=== PATIENT | female | born 1990 | race Caucasian/White ===

== ENCOUNTER 2016-06-21 | Emergency (ER) | payer OTHER ==
--- NOTE | 2016-06-21 14:48 | ED ---
General Adult HPI - General Chief complaint: Dental/Oral Stated complaint: dental pain Time Seen by Provider: 06/21/16 14:40 Source: patient, RN notes reviewed Mode of arrival: ambulatory Limitations: no limitations - History of Present Illness Initial comments: Is a 25-year-old female presents with dental pain to the upper gumline. Patient states it's been hurting her for 2 straight days. Patient has been taking Tylenol and her motion without pain relief. Patient states she is currently looking for a dentist. Patient denies any foul odor, purulent drainage or swelling. Patient denies any fever/chills, nausea/vomiting or diarrhea. Patient denies any recent shortness breath, chest pain, abdominal pain , back pain, numbness, tingling, hematuria, headache, or visual changes, or any other complaints. Patient denies any chance of being as she has had a tubal ligation. - Related Data Previous Rx's Medication Instructions Recorded Acetaminophen-Codeine 300-30mg 1 tab PO Q6H #7 tablet 06/21/16 [Tylenol #3] Clindamycin [Cleocin] 150 mg PO Q6H 7 Days 06/21/16 Allergies Allergy/AdvReac Type Severity Reaction Status Date / Time amoxicillin [Amoxicillin] Allergy Anaphylaxis Verified 06/21/16 14:43 Review of Systems ROS Statement: Those systems with pertinent positive or pertinent negative responses have been documented in the HPI. ROS Other: All systems not noted in ROS Statement are negative. Past Medical History Past Medical History: Asthma, Pneumonia Additional Past Medical History / Comment(s): scoliosis, borderline personality disorder, vertigo History of Any Multi-Drug Resistant Organisms: None Reported Past Surgical History: Tubal Ligation Additional Past Surgical History / Comment(s): D&C Past Anesthesia/Blood Transfusion Reactions: No Reported Reaction Past Psychological History: Anxiety, Bipolar Smoking Status: Current every day smoker Past Alcohol Use History: None Reported Past Drug Use History: None Reported - Past Family History Mother Family Medical History: Musculoskeletal Disorder General Exam - General Exam Comments Initial Comments: General: The patient is awake and alert, in no distress, and does not appear acutely ill. Eye: Pupils are equal, round and reactive to light, extra-ocular movements are intact. No nystagmus. There is normal conjunctiva bilaterally. No signs of icterus. Ears: TMs pink and pearly with intact light bilaterally. Normal external ear canals Nose: Nasal turbinates pink and moist. Mouth and throat: There are multiple areas of tooth decay. There is tenderness to palpation with a tongue blade of tooth #9. Multiple cavities present. No erythema, purulent drainage or swelling. There are moist mucous membranes and no oral lesions. Neck: The neck is supple, there is no tenderness or JVD. Cardiovascular: There is a regular rate and rhythm. No murmur, rub or gallop is appreciated. Respiratory: Lungs are clear to auscultation, respirations are non-labored, breath sounds are equal. No wheezes, stridor, rales, or rhonchi. Musculoskeletal: Normal ROM, no tenderness. Strength 5/5. Sensation intact. Radial Pulses equal bilaterally 2+. Neurological: A&O x 3. CN II-XII intact, There are no obvious motor or sensory deficits. Coordination appears grossly intact. Speech is normal. Skin: Skin is warm and dry and no rashes or lesions are noted. Psychiatric: Cooperative, appropriate mood & affect, normal judgment. Limitations: no limitations Course Vital Signs 06/21/16 14:41 Temperature 98.1 F Pulse Rate 97 Respiratory 18 Rate Blood Pressure 146/78 O2 Sat by Pulse 98 Oximetry Medical Decision Making - Medical Decision Making This is a 25-year-old female presents with dental pain. On physical exam there are multiple areas of tooth decay. There is tenderness to palpation with a tongue blade of tooth #9. Multiple cavities present. No erythema, purulent drainage or swelling. There are moist mucous membranes and no oral lesions. Patient is afebrile in the EC today. Discussed with patient that she'll be put on a course of antibiotics. Discussed a short course of Tylenol No. 3 until she can follow up with her dentist. Tylenol 3 may make you drowsy please avoid driving or drinking alcohol or using this medication. Discussed return parameters. Discussed that patient should follow up with PCP in one to 2 days or return to the EC for any worsening symptoms or for any further concerns. Patient was receptive to this plan and patient will be discharged home. Disposition Clinical Impression: Pain, dental Disposition: HOME SELF-CARE Condition: Good Instructions: Toothache (ED) Additional Instructions: Please use antibiotics as prescribed. Please use pain medication as prescribed. Tylenol 3 may make you drowsy please avoid driving or drinking alcohol or using this medication. Use warm compresses to the area for pain. Please follow-up with dentist as soon as possible. Please follow up with PCP tomorrow or return to the EC for any worsening symptoms or for any further concerns. [facility] dental plan: [id number] [place] [address], . [employer]: Have to pay $50 for x-rays and the rest is covered. [phone]. Prescriptions: Acetaminophen-Codeine 300-30mg [Tylenol #3] 1 tab PO Q6H #7 tablet Clindamycin [Cleocin] 150 mg PO Q6H 7 Days Referrals: Paul Vick MD [REFERRING] - 1-2 days Time of Disposition: 14:52
== END 2016-06-21 14:57 | disposition home or self-care (01) ==
CPT/HCPCS: 99282

== ENCOUNTER 2017-01-17 16:43 | Emergency (ER) | payer OTHER ==
[2017-01-17 16:53] VITALS: BP 131/79; PULSE 83; RESP 17; TEMP 98
--- NOTE | 2017-01-17 17:19 | ED ---
ENT HPI - General Chief complaint: Dental/Oral Stated complaint: Oral Pain Time Seen by Provider: 01/17/17 16:56 Source: patient Mode of arrival: ambulatory Limitations: no limitations - History of Present Illness Initial comments: 26-year-old female patient presents to emergency department today for evaluation of right lower dental pain. Patient states that she has had this pain for the last week. Patient states that she has broken teeth, all to pull cavities, and is supposed to have them all pulled. Today she is unable to due to secretions have a ride to and from the appointment. Patient states that she had abscess to the same location at the beginning of this year. Patient states that she has felt feverish, but has not checked her temperature. Denies any difficulty opening her mouth. She denies any headache, neck pain, back pain, chest pain, shortness of breath, abdominal pain, nausea, vomiting, or any other physical symptoms. - Related Data Previous Rx's Medication Instructions Recorded Acetaminophen-Codeine 300-30mg 1 tab PO Q6H #7 tablet 06/21/16 [Tylenol #3] Clindamycin [Cleocin] 150 mg PO Q6H 7 Days 06/21/16 Acetaminophen-Codeine 300-30mg 1 tab PO Q6H PRN #15 tablet 01/17/17 [Tylenol #3] Clindamycin HCl 300 mg PO Q8H #30 cap 01/17/17 Allergies Allergy/AdvReac Type Severity Reaction Status Date / Time amoxicillin [Amoxicillin] Allergy Anaphylaxis Verified 01/17/17 16:51 Review of Systems ROS Statement: Those systems with pertinent positive or pertinent negative responses have been documented in the HPI. ROS Other: All systems not noted in ROS Statement are negative. Past Medical History Past Medical History: Asthma, Pneumonia Additional Past Medical History / Comment(s): scoliosis, borderline personality disorder, vertigo History of Any Multi-Drug Resistant Organisms: None Reported Past Surgical History: Tubal Ligation Additional Past Surgical History / Comment(s): D&C Past Anesthesia/Blood Transfusion Reactions: No Reported Reaction Past Psychological History: Anxiety, Bipolar Smoking Status: Current every day smoker Past Alcohol Use History: None Reported Past Drug Use History: None Reported - Past Family History Mother Family Medical History: Musculoskeletal Disorder General Exam Limitations: no limitations General appearance: alert, in no apparent distress Head exam: Present: atraumatic, normocephalic, normal inspection Eye exam: Present: normal appearance, PERRL, EOMI. Absent: scleral icterus, conjunctival injection, periorbital swelling ENT exam: Present: normal exam ( Tooth #31 is completely broken, remaining to this level with the gum. No evidence of abscess to the gumline. There is some mild swelling noted to the right cheek.), normal oropharynx, mucous membranes moist, TM's normal bilaterally, other Neck exam: Present: normal inspection, lymphadenopathy (Palpable anterior cervical lymph node on the right side.). Absent: tenderness, meningismus Respiratory exam: Present: normal lung sounds bilaterally. Absent: respiratory distress, wheezes, rales, rhonchi, stridor Cardiovascular Exam: Present: regular rate, normal rhythm, normal heart sounds. Absent: systolic murmur, diastolic murmur, rubs, gallop, clicks Extremities exam: Present: normal inspection, full ROM, normal capillary refill. Absent: tenderness, pedal edema, joint swelling, calf tenderness Back exam: Present: normal inspection Neurological exam: Present: alert, oriented X3, CN II-XII intact Psychiatric exam: Present: normal affect, normal mood Skin exam: Present: warm, dry, intact, normal color. Absent: rash Course Vital Signs 01/17/17 16:51 Temperature 98.0 F Pulse Rate 83 Respiratory 17 Rate Blood Pressure 131/79 O2 Sat by Pulse 98 Oximetry Medical Decision Making - Medical Decision Making -year-old female patient presented to emergency department today for evaluation of right-sided dental pain. Physical exam did show a fractured tooth and some mild soft tissue swelling to the outside of the face. Patient will be placed on clindamycin as well as given Tylenol 3 with codeine for pain control. Patient instructed to follow up with a dentist as soon as possible. Patient also instructed to follow-up with her primary care physician if she can't get in to see her dentist. Instructed to return here for any new, worsening, or concerning symptoms. Patient verbalizes understanding and agrees with this plan. Disposition Clinical Impression: Pain, dental, Fractured tooth Disposition: HOME SELF-CARE Condition: Good Instructions: Dental Caries (ED), Toothache (ED) Additional Instructions: Complete antibiotic prescription in full. Follow up with dentist as soon as possible. Return for any new, worsening, or concerning symptoms. Prescriptions: Acetaminophen-Codeine 300-30mg [Tylenol #3] 1 tab PO Q6H PRN #15 tablet PRN Reason: Pain Clindamycin HCl 300 mg PO Q8H #30 cap Referrals: None,Stated [Primary Care Provider] - 1-2 days Time of Disposition: 17:19
== END 2017-01-17 17:27 | disposition home or self-care (01) ==
LOC: EC 16:43
DX: S02.5XXA Fracture of tooth (traumatic), initial encounter for closed fracture (principal); F17.200 Nicotine dependence, unspecified, uncomplicated; Z88.0 Allergy status to penicillin; X58.XXXA Exposure to other specified factors, initial encounter
CPT/HCPCS: 99282

== ENCOUNTER 2017-04-26 16:52 | Emergency (ER) | payer OTHER ==
--- NOTE | 2017-04-26 17:53 | ED ---
General Adult HPI - General Chief complaint: ENT Stated complaint: Sore Throat/Cough Time Seen by Provider: 04/26/17 17:11 Source: patient, RN notes reviewed Mode of arrival: ambulatory Limitations: no limitations - History of Present Illness Initial comments: This is a 26-year-old female who presents to the emergency department with chief complaint of cough. Patient states for the last week she has been feeling generally unwell. She reports that she has had a cough and intermittent fevers. Patient states that this morning she woke up and her cough was worse. She states that this morning she also began to have left- sided jaw pain. She states she is unable to tell if she has an ear infection that is causing her to have the mouth pain or if she has an infected tooth. She states that she has many dental problems and has had abscesses in the past. Patient reports that she's also had myalgias, sore throat and one episode of vomiting and diarrhea this morning after she ate breakfast. Denies chest pain, shortness of breath, abdominal pain, numbness or tingling, headache or vision changes. - Related Data Home Medications Medication Instructions Recorded Confirmed Phenylephrine/Dm/Acetaminop/GG 30 ml PO Q4H PRN 04/26/17 04/26/17 [Vicks Dayquil Severe Cold-Flu] Previous Rx's Medication Instructions Recorded Clindamycin [Cleocin] 450 mg PO TID #90 cap 04/26/17 Ibuprofen 600 mg PO Q6HR #30 tablet 04/26/17 Allergies Allergy/AdvReac Type Severity Reaction Status Date / Time amoxicillin [Amoxicillin] Allergy Anaphylaxis Verified 04/26/17 17:11 Review of Systems ROS Statement: Those systems with pertinent positive or pertinent negative responses have been documented in the HPI. ROS Other: All systems not noted in ROS Statement are negative. Past Medical History Past Medical History: Asthma, Pneumonia Additional Past Medical History / Comment(s): scoliosis, borderline personality disorder, vertigo History of Any Multi-Drug Resistant Organisms: None Reported Past Surgical History: Tubal Ligation Additional Past Surgical History / Comment(s): D&C Past Anesthesia/Blood Transfusion Reactions: No Reported Reaction Past Psychological History: Anxiety, Bipolar Smoking Status: Current every day smoker Past Alcohol Use History: None Reported Past Drug Use History: None Reported - Past Family History Mother Family Medical History: Musculoskeletal Disorder General Exam - General Exam Comments Initial Comments: General: Awake and alert, well-developed; in no apparent distress. HEENT: Head atraumatic, normocephalic. Pupils are equal, round and reactive to light. Extraocular movements intact. Oropharynx moist without erythema or exudate. Poor dentition with multiple caries, fractured teeth and missing teeth. There is tenderness on palpation of tooth #17; it is fractured and appears to have a cavity. No masses or areas of fluctuance noted. Bilateral TMs are pearly without effusion. Neck: Supple. Normal ROM. No adenopathy. Cardiovascular: Regular rate and rhythm. No murmurs, rubs or gallops. Chest symmetrical. Respiratory: Lungs clear to auscultation bilaterally. No wheezes, rales or rhonchi. Normal respiratory effort with no use of accessory muscles. Abdomen: Soft, non-tender, non-distended. No rigidity, rebound or guarding. Normal bowel sounds in all 4 quadrants. Musculoskeletal: Normal ROM, no tenderness bilateral upper and lower extremities. Radial pulses are 2+ equal and palpable bilaterally. Skin: [place], warm and dry without rashes or lesions. Neurological: Alert and oriented x3. CN II-XII grossly intact. Speech is fluent and answers are appropriate. No focal neuro deficits. Psychiatric: Normal mood and affect. No overt signs of depression or anxiety noted. Limitations: no limitations Course Vital Signs 04/26/17 17:06 Temperature 99.2 F Pulse Rate 121 H Respiratory 18 Rate Blood Pressure 135/79 O2 Sat by Pulse 99 Oximetry Medical Decision Making - Medical Decision Making This is a 26-year-old female who presents to the emergency department with chief complaint of cough and fever. Chest x-ray was normal. Patient tested negative for influenza A and B. There is tenderness on palpation of tooth #17, which is fractured, and surrounding gumline. Vitals are stable and patient is in no acute distress. She'll be discharged home with a prescription for clindamycin and ibuprofen for tooth pain. Patient is in agreement to the plan and voiced understanding. All questions were answered. - Radiology Data Radiology results: report reviewed Chest x-ray findings: There is no heart failure nor confluent pneumonic infiltrate. There is mild thoracic dextroscoliosis. Heart and mediastinum appear normal. There is no sign of pleural effusion. Impression: No cardiopulmonary disease. Scoliotic deformity noted. No change. Disposition Clinical Impression: Pain, dental, Fracture of tooth, Upper respiratory infection Disposition: HOME SELF-CARE Condition: Good Instructions: Toothache (ED), Upper Respiratory Infection (ED) Additional Instructions: Please take medications as prescribed. Please follow up with primary care provider within 1-2 days. Please follow up with a dentist. Return to emergency department if symptoms should worsen or any concerns arise. Prescriptions: Clindamycin [Cleocin] 450 mg PO TID #90 cap Ibuprofen 600 mg PO Q6HR #30 tablet Referrals: None,Stated [Primary Care Provider] - 1-2 days Time of Disposition: 18:16
--- NOTE | 2017-04-26 17:59 | XR ---
EXAMINATION TYPE: XR chest 2V DATE OF EXAM: 04/26/2017 COMPARISON: 05/03/2010 HISTORY: Cough and fever TECHNIQUE: Frontal and lateral views of the chest are obtained. FINDINGS: There is no heart failure nor confluent pneumonic infiltrate. There is mild thoracic dextr oscoliosis. Heart and mediastinum appear normal. There is no sign of pleural effusion. IMPRESSION: No cardiopulmonary disease. Scoliotic deformity noted. No change.
[2017-04-26 18:10] VITALS: BP 121/89; PULSE 82; RESP 16; TEMP 97.5
== END 2017-04-26 18:21 | disposition home or self-care (01) ==
LOC: EC 16:52
DX: S02.5XXA Fracture of tooth (traumatic), initial encounter for closed fracture (principal); J06.9 Acute upper respiratory infection, unspecified; M41.84 Other forms of scoliosis, thoracic region; K02.9 Dental caries, unspecified; K08.409 Partial loss of teeth, unspecified cause, unspecified class; R11.10 Vomiting, unspecified; R19.7 Diarrhea, unspecified; F17.200 Nicotine dependence, unspecified, uncomplicated; Z88.0 Allergy status to penicillin; X58.XXXA Exposure to other specified factors, initial encounter
CPT/HCPCS: 71020; 87502; 99284

== ENCOUNTER 2017-06-12 17:29 | Emergency (ER) | payer OTHER ==
[2017-06-12] MEDS ORDERED: ACETAMINOPHEN TAB 325 MG TAB PO STA (18:13)
[2017-06-12] MEDS ORDERED: IBUPROFEN 600 MG TAB PO STA (18:13)
[2017-06-12] MEDS ORDERED: ONDANSETRON ODT 4 MG TAB PO STA (18:13)
--- NOTE | 2017-06-12 18:18 | ED ---
Fever HPI - General Chief Complaint: Fever Stated Complaint: Fever/Cough Time Seen by Provider: 06/12/17 18:00 Source: patient Mode of arrival: ambulatory Limitations: no limitations - History of Present Illness Initial Comments: 26-year-old female patient presented to the emergency department today for evaluation of fever, cough, and vomiting. Patient states that she has been sick for the last 3-4 days with upper respiratory symptoms. Patient states that today her cough is worse and it is causing her to vomit. She states she has vomited 4 times. She states that she feels feverish and chilled. She states she did take DayQuil earlier today however doesn't feel like it is helping her symptoms. She states that both of her children have similar symptoms. She denies any shortness of breath. Denies any sputum production. Denies any hemoptysis or hematemesis. Denies any constipation or diarrhea. Denies any chance of . Patient denies any recent rash, chest pain, abdominal pain, back pain, numbness, tingling, dizziness, weakness, hematuria, dysuria, urinary urgency, urinary frequency, headache, visual changes, or any other complaints. Patient does admit to smoking cigarettes. - Related Data Home Medications Medication Instructions Recorded Confirmed Phenylephrine/Dm/Acetaminop/GG 30 ml PO Q4H PRN 04/26/17 06/12/17 [Vicks Dayquil Severe Cold-Flu] Allergies Allergy/AdvReac Type Severity Reaction Status Date / Time amoxicillin [Amoxicillin] Allergy Anaphylaxis Verified 06/12/17 18:22 Review of Systems ROS Statement: Those systems with pertinent positive or pertinent negative responses have been documented in the HPI. ROS Other: All systems not noted in ROS Statement are negative. Past Medical History Past Medical History: Asthma, Pneumonia Additional Past Medical History / Comment(s): scoliosis, borderline personality disorder, vertigo History of Any Multi-Drug Resistant Organisms: None Reported Past Surgical History: Tubal Ligation Additional Past Surgical History / Comment(s): D&C Past Anesthesia/Blood Transfusion Reactions: No Reported Reaction Past Psychological History: Anxiety, Bipolar Smoking Status: Current every day smoker Past Alcohol Use History: None Reported Past Drug Use History: None Reported - Past Family History Mother Family Medical History: Musculoskeletal Disorder General Exam Limitations: no limitations General appearance: alert, in no apparent distress, other (This is a well- developed, well-nourished adult female patient in no acute distress. Vital signs upon presentation are temperature 101.9F, pulse 98, respirations 18, blood pressure 159/81, pulse ox 97% on room air.) Eye exam: Present: normal appearance, PERRL, EOMI. Absent: scleral icterus, conjunctival injection, periorbital swelling ENT exam: Present: normal exam, mucous membranes moist, TM's normal bilaterally. Absent: normal oropharynx (Oropharyngeal erythema) Neck exam: Present: normal inspection. Absent: tenderness, meningismus, lymphadenopathy Respiratory exam: Present: normal lung sounds bilaterally, other (Dry cough noted throughout exam, respirations even and unlabored). Absent: respiratory distress, wheezes, rales, rhonchi, stridor, accessory muscle use Cardiovascular Exam: Present: normal rhythm, tachycardia, normal heart sounds. Absent: systolic murmur, diastolic murmur, rubs, gallop, clicks GI/Abdominal exam: Present: soft, normal bowel sounds. Absent: distended, tenderness, guarding, rebound, rigid Neurological exam: Present: alert, oriented X3, CN II-XII intact Psychiatric exam: Present: normal affect, normal mood Skin exam: Present: warm, dry, intact, normal color. Absent: rash Course Vital Signs 06/12/17 06/12/17 17:46 19:13 Temperature 101.9 F H 99.5 F Pulse Rate 98 57 L Respiratory 18 18 Rate Blood Pressure 159/81 131/83 O2 Sat by Pulse 97 97 Oximetry Medical Decision Making - Medical Decision Making 26-year-old female patient presents to the emergency department today for evaluation of fever, cough, congestion, and vomiting. Patient reported that her vomiting was mostly posttussive and containing sputum. Physical examination is unremarkable. Lungs are clear to auscultation. She did have some mild oropharyngeal erythema. Chest x-ray was obtained and showed no acute cardiopulmonary process. Influenza testing was negative. I did discuss results with the patient. I informed her that her symptoms are most likely related to viral upper respiratory infection. She does have albuterol breathing treatments at home I did encourage her to use these for symptom relief. She is instructed to take [id number] nasal decongestants and cough medications for relief. She is instructed to alternate ibuprofen and Tylenol for fever control. She is instructed to increase fluids. She is instructed to return here immediately for any new, worsening, or concerning symptoms. She verbalizes understanding and agrees with this plan. - Lab Data Lab Results 06/12/17 Range/Units 18:25 Influenza Type A RNA Not Detected (Not Detectd) Influenza Type B (PCR) Not Detected (Not Detectd) - Radiology Data Radiology results: report reviewed, image reviewed Two-view x-ray of the chest shows a heart and mediastinum are normal. Lungs are clear. Diaphragm is normal. There is thoracic scoliotic deformity. Impression by Dr. Kelley shows no cardiopulmonary disease. No change. Disposition Clinical Impression: Viral upper respiratory illness Disposition: HOME SELF-CARE Condition: Good Instructions: Fever in Adults (ED), Upper Respiratory Infection (ED) Additional Instructions: Take [id number] nasal decongestants and cough medications for symptom relief. Increase fluids. Alternate ibuprofen and Tylenol for fever control. Follow-up with your primary care physician for recheck in 1-2 days. Return here immediately for any new, worsening, or concerning symptoms. Referrals: None,Stated [Primary Care Provider] - 1-2 days Time of Disposition: 19:45
--- NOTE | 2017-06-12 19:34 | XR ---
EXAMINATION TYPE: XR chest 2V DATE OF EXAM: 06/12/2017 COMPARISON: 04/26/2017 HISTORY: Pain TECHNIQUE: Frontal and lateral views of the chest are obtained. FINDINGS: Heart and mediastinum are normal. Lungs are clear. Diaphragm is normal. There is thoracic scoliotic deformity. IMPRESSION: No cardiopulmonary disease. No change.
[2017-06-12 23:35] VITALS: BP 131/83; PULSE 57; RESP 18; TEMP 99.5
== END 2017-06-12 19:59 | disposition home or self-care (01) ==
LOC: EC 17:29
DX: J06.9 Acute upper respiratory infection, unspecified (principal); R11.10 Vomiting, unspecified; Z87.01 Personal history of pneumonia (recurrent); Z88.0 Allergy status to penicillin
CPT/HCPCS: 71046; 87502; 99284

== ENCOUNTER → 2018-04-16 | Outpatient (CLI) | payer OTHER ==
--- NOTE | 2018-04-16 14:56 | USB ---
Reason for exam: clinical finding. History: Family history of breast cancer in grandmother. Took hormonal contraceptives beginning at age 12. Physical Findings: Nurse Summary: 0.75cm nodule in the right breast at 12 o'clock (nurse chucky). US Breast RT Right complete breast ultrasound includes all four quadrants, the retroareolar region and axilla. Finding demonstrates a 4 x 4 x 4mm oval, cystic lesion at posterior nipple BB. These results were verbally communicated with the patient and result sheet given to the patient on 04/16/18. ASSESSMENT: Benign, BI-RAD 2 RECOMMENDATION: Routine screening mammogram of both breasts at age 38. Manage patient on a clinical basis.
== END | disposition home or self-care (01) ==
LOC: RADMAMWWP 13:30
PROVIDERS: ATTEND Internal Medicine
DX: N63.10 Unspecified lump in the right breast, unspecified quadrant (principal)

== ENCOUNTER 2018-06-09 11:37 | Emergency (ER) | payer OTHER ==
[2018-06-09 12:31] VITALS: BP 110/74; PULSE 108; RESP 20; TEMP 99.4
--- NOTE | 2018-06-09 13:35 | XR ---
EXAMINATION TYPE: XR chest 2V DATE OF EXAM: 06/09/2018 COMPARISON: 06/12/2017 INDICATION: Pain TECHNIQUE: Frontal and lateral views of the chest are obtained. FINDINGS: The heart size is normal. The pulmonary vasculature is normal. The lungs are clear. Scoliosis is through the thoracic spine. IMPRESSION: 1. No acute pulmonary process.
--- NOTE | 2018-06-09 14:00 | ED ---
URI HPI - General Chief Complaint: Upper Respiratory Infection Stated Complaint: cough, fever, chills Time Seen by Provider: 06/09/18 12:49 Source: patient Mode of arrival: ambulatory Limitations: no limitations - History of Present Illness Initial Comments: 27-year-old female status post past medical history presents today with chief complaint of fever, chills, body aches and cough. Patient states that for the past 2-3 days her her daughter have had fever, chills, bodyaches as well as a mild cough. Patient denies any sputum production. Patient denies any abdominal pain, diarrhea, nausea, vomiting, headache, dizziness, chest pain, shortness of breath or dyspnea on exertion. Mother denies stating is not possible. Remainder of ROS negative. Upon arrival patient's heart rate elevated remainder vital signs the next limits. Patient afebrile well- appearing no signs of acute toxicity. - Related Data Home Medications Medication Instructions Recorded Confirmed Phenylephrine/Dm/Acetaminop/GG 30 ml PO Q4H PRN 04/26/17 06/12/17 [Vicks Dayquil Severe Cold-Flu] Previous Rx's Medication Instructions Recorded Ibuprofen 800 mg PO Q8H PRN 7 Days #21 tablet 06/09/18 Allergies Allergy/AdvReac Type Severity Reaction Status Date / Time amoxicillin [Amoxicillin] Allergy Anaphylaxis Verified 06/09/18 12:31 Review of Systems ROS Statement: Those systems with pertinent positive or pertinent negative responses have been documented in the HPI. ROS Other: All systems not noted in ROS Statement are negative. Past Medical History Past Medical History: Asthma, Pneumonia Additional Past Medical History / Comment(s): scoliosis, borderline personality disorder, vertigo History of Any Multi-Drug Resistant Organisms: None Reported Past Surgical History: Tubal Ligation Additional Past Surgical History / Comment(s): D&C Past Anesthesia/Blood Transfusion Reactions: No Reported Reaction Past Psychological History: Anxiety, Bipolar Smoking Status: Current every day smoker Past Alcohol Use History: None Reported Past Drug Use History: None Reported - Past Family History Mother Family Medical History: Musculoskeletal Disorder General Exam - General Exam Comments Initial Comments: General: The patient is awake and alert, in no distress, and does not appear acutely ill. Eye: +3 mm pupils are equal, round and reactive to light, extra-ocular movements are intact. No nystagmus. There is normal conjunctiva bilaterally. No signs of icterus. Ears, nose, mouth and throat: There are moist mucous membranes and no oral lesions. Oropharynx is mildly erythematous, noted postnasal drip, uvula midline. No tonsillar enlargement or exudates or lesions. Tympanic membranes within normal limits bilaterally no erythema, retractions bulging or effusion. Cone of light and malleus present. Membranes pearly. External auditory canals within normal limits bilaterally. No noted anterior cervical adenopathy. Neck: The neck is supple, there is no tenderness or JVD. Cardiovascular: There is a regular rate and rhythm. No murmur, rub or gallop is appreciated. Respiratory: Lungs are clear to auscultation, respirations are non-labored, breath sounds are equal. No wheezes, stridor, rales, or rhonchi. No findings on lung examination concerning for focal consolidations. No signs of respiratory distress. Gastrointestinal: Soft, non-distended, non-tender abdomen without masses or organomegaly noted. There is no rebound or guarding present. No CVA tenderness. Bowel sounds are unremarkable. Musculoskeletal: Normal ROM, no tenderness. Strength 5/5. Sensation intact. Radial pulses equal bilaterally 2+. Neurological: A&O x 3. CN II-XII intact, There are no obvious motor or sensory deficits. Coordination appears grossly intact. Speech is normal. Skin: Skin is warm and dry and no rashes or lesions are noted. Psychiatric: Cooperative, appropriate mood & affect, normal judgment. Limitations: no limitations Course Vital Signs 06/09/18 06/09/18 12:29 13:00 Temperature 99.4 F Pulse Rate 108 H Respiratory 20 20 Rate Blood Pressure 110/74 O2 Sat by Pulse 97 Oximetry Medical Decision Making - Medical Decision Making Well-appearing 27-year-old female with no sniff Core morbidities presenting today for chief complaint body aches, fever and chill. Patient influenza B- positive. Chest x-ray negative. Remainder of physical exam unremarkable. Patient will be given prescription for ibuprofen 800 for body aches. She appears hydrated, is tolerate by mouth intake. I discussed that the disease is infectious and highly contagious. She verbalizes understanding. Case discussed with Dr. Mercado at this time we do feel patient is stable for discharge with primary care follow-up. Patient verbalized understanding and is agreeable discharge. All return parameters were discussed at length patient who verbalizes understanding. Denied questions at this time.Pt discharged in stable condition well appearing. - Lab Data Lab Results 06/09/18 Range/Units 13:11 Influenza Type A RNA Not Detected (Not Detectd) Influenza Type B (PCR) Detected H (Not Detectd) Disposition Clinical Impression: Influenza B Disposition: HOME SELF-CARE Condition: Good Instructions: Influenza (ED) Additional Instructions: Please use medication as discussed. Please follow-up with family doctor in the next 2 days. Please return to emergency room if the symptoms increase or worsen or for any other concerns. Prescriptions: Ibuprofen 800 mg PO Q8H PRN 7 Days #21 tablet PRN Reason: Pain Is patient prescribed a controlled substance at d/c from ED?: No Referrals: Darrell Pemberton MD [Primary Care Provider] - 1-2 days Time of Disposition: 14:00
== END 2018-06-09 14:12 | disposition home or self-care (01) ==
LOC: EC 11:37
DX: J10.1 Influenza due to other identified influenza virus with other respiratory manifestations (principal); J45.909 Unspecified asthma, uncomplicated; F17.200 Nicotine dependence, unspecified, uncomplicated; Z88.0 Allergy status to penicillin
CPT/HCPCS: 71046; 87502; 99283

== ENCOUNTER → 2018-07-23 | Outpatient (CLI) | payer OTHER ==
--- NOTE | 2018-07-23 13:00 | MR ---
EXAMINATION TYPE: MR brain wo/w con DATE OF EXAM: 07/23/2018 COMPARISON: Prior MR brain 09/27/2014 HISTORY: Headache TECHNIQUE: Multiplanar, multisequence images of the brain and brainstem is performed without and with IV contras t, utilizing 6 mL intravenous Gadavist . FINDINGS: Diffusion weighted images demonstrate no evidence of a recent infarct or other diffusion ab normality. There is no extra-axial fluid collection or significant white matter signal abnormality. The ventricular system and cisternal spaces are normal in size and appearance. The brain volume is age appropriate. Midline structures demonstrate stable morphology, inferior cerebellar tonsillar ectopia is noted as o n prior, 5 to 6 mm suspected on the right which could be confirmed with CT. The craniocervical junct ion appears within normal limits. Post contrast images demonstrate no abnormal enhancement. The dura l venous sinuses appear patent. The visualized sinuses are stable with some mucosal disease present i n the maxillary sinuses and ethmoid air cells, and the globes are intact. IMPRESSION: Mild sinus disease. Stable brain MRI. Right cerebellar tonsil is somewhat more low-lying in the left as described, consider CT.
== END | disposition home or self-care (01) ==
LOC: RADMRIMAIN 11:26
PROVIDERS: ATTEND Psychiatry & Neurology Neurology
DX: R51 Headache (principal)
CPT/HCPCS: 70553; A9585

== ENCOUNTER 2018-09-12 17:12 | Emergency (ER) | payer OTHER ==
[2018-09-12 17:20] VITALS: BP 128/88; PULSE 89; RESP 20; TEMP 98.4
--- NOTE | 2018-09-12 17:52 | ED ---
General Adult HPI - General Chief complaint: Dental/Oral Stated complaint: Tooth Pain Time Seen by Provider: 09/12/18 17:21 Source: patient, RN notes reviewed, old records reviewed Mode of arrival: ambulatory Limitations: no limitations - History of Present Illness Initial comments: 28-year-old female patient past medical history of poor dentition presents to ED approximately 2 weeks of 29th tooth pain. Patient reports that this feels similar to tooth infection she has had in the past. Patient states that she is not . Patient denies any fevers chills, nothing nausea vomiting diarrhea, denies any chest pain, shortness of breath, denies other complaints. Denies any neck pain or nuchal rigidity. Systemic: Pt denies fatigue, myalgia, fever/chills, rash. Pt denies weakness, night sweats, weight loss. Neuro: Pt denies headache, visual disturbances, syncope or pre-syncope. HEENT: Pt denies ocular discharge or irritation, otalgia, rhinorrhea, pharyngitis or notable lymphadenopathy. Cardiopulmonary: Pt denies chest pain, SOB, heart palpitations, dyspnea on exertion. Abdominal/GI: Pt denies abdominal pain, n/v/d. : Pt denies dysuria, burning w/ urination, frequency/urgency. Denies new onset urinary or bowel incontinence. MSK: Pt denies myalgia, loss of strength or function in extremities. Neuro: Pt denies new onset weakness, paresthesias. - Related Data Home Medications Medication Instructions Recorded Confirmed Phenylephrine/Dm/Acetaminop/GG 30 ml PO Q4H PRN 04/26/17 06/12/17 [[place] Dayquil Severe Cold-Flu] Previous Rx's Medication Instructions Recorded Ibuprofen 800 mg PO Q8H PRN 7 Days #21 tablet 06/09/18 Clindamycin [Cleocin] 450 mg PO Q8HR 7 Days capsule 09/12/18 Allergies Allergy/AdvReac Type Severity Reaction Status Date / Time amoxicillin [Amoxicillin] Allergy Anaphylaxis Verified 09/12/18 17:20 Review of Systems ROS Statement: Those systems with pertinent positive or pertinent negative responses have been documented in the HPI. ROS Other: All systems not noted in ROS Statement are negative. Past Medical History Past Medical History: Asthma, Pneumonia Additional Past Medical History / Comment(s): scoliosis, borderline personality disorder, vertigo History of Any Multi-Drug Resistant Organisms: None Reported Past Surgical History: Tubal Ligation Additional Past Surgical History / Comment(s): D&C Past Anesthesia/Blood Transfusion Reactions: No Reported Reaction Past Psychological History: Anxiety, Bipolar Smoking Status: Current every day smoker Past Alcohol Use History: None Reported Past Drug Use History: None Reported - Past Family History Mother Family Medical History: Musculoskeletal Disorder General Exam - General Exam Comments Initial Comments: Constitutional: NAD, AOX3, Pt has pleasant affect. HEENT: NC/AT, trachea midline, neck supple, no lymphadenopathy. Posterior pharynx non erythematous, without exudates. External ears appear normal, without discharge. Mucous membranes moist. Eyes PERRLA, EOM intact. There is no scleral icterus. No pallor noted. Dental exam revealed poor dentition. Localized erythema surrounding the ninth tooth. No abscess. Cardiopulmonary: RRR, no murmurs, rubs or gallops, no JVD noted. Lungs CTAB in anterior and posterior bill. No peripheral edema. Abdominal exam: Abdomen soft and non-distended. Abdomen non-tender to palpation in all 4 quadrants. Bowel sounds active in LLQ. No hepatosplenomegaly. No ecchymosis Neuro: CN II-XII grossly intact. No nuchal rigidity. MSK: No posterior calf tenderness bilaterally, homans sign negative bilaterally. Posterior tibialis and radial pulse +2 bilaterally. Sensation intact in upper and lower extremities. Full active ROM in upper and lower extremities, 5/5 stregnth. Limitations: no limitations Course Vital Signs 09/12/18 17:18 Temperature 98.4 F Pulse Rate 89 Respiratory 20 Rate Blood Pressure 128/88 O2 Sat by Pulse 98 Oximetry Medical Decision Making - Medical Decision Making 28-year-old female patient past medical history of poor dentition presents to ED approximately 2 weeks of 29th tooth pain. Patient reports that this feels similar to tooth infection she has had in the past. Patient states that she is not . Patient denies any fevers chills, nothing nausea vomiting diarrhea, denies any chest pain, shortness of breath, denies other complaints. Denies any neck pain or nuchal rigidity. Patient has signs stable, afebrile. Physical exam displayed: Dental exam revealed poor dentition. Localized erythema surrounding the ninth tooth. No abscess. Patient prescribed clindamycin to 2 ALLERGIES to amoxicillin. Patient to follow up with dentist and primary care provider in 1-2 days. Patient will return to ER if condition worsens in any way. Case discussed with Dr. Ty. Disposition Clinical Impression: Pain, dental, Dental infection Disposition: HOME SELF-CARE Condition: Stable Instructions (If sedation given, give patient instructions): Dental Caries (ED), Toothache (ED) Additional Instructions: Patient to adhere to previously discussed treatment plan and will take medication(s) as directed. Patient to follow up with PCP in 1-2 days. Patient to return to ED if symptoms do not improve. Please take medications as prescribed. Please follow-up with dentist as soon as possible. Prescriptions: Clindamycin [Cleocin] 450 mg PO Q8HR 7 Days capsule Is patient prescribed a controlled substance at d/c from ED?: No Referrals: Darrell Pemberton MD [Primary Care Provider] - 1-2 days
== END 2018-09-12 17:58 | disposition home or self-care (01) ==
LOC: EC 17:12
DX: K04.7 Periapical abscess without sinus (principal); F17.200 Nicotine dependence, unspecified, uncomplicated; Z88.0 Allergy status to penicillin
CPT/HCPCS: 99283

== ENCOUNTER 2018-12-05 17:15 | Emergency (ER) | payer OTHER ==
[2018-12-05 18:48] VITALS: BP 138/73; PULSE 68; RESP 18; TEMP 98.6
[2018-12-05 19:41] LABS: Appearance,Urine Cloudy (Clear); Bilirubin,Urine Negative (Negative); Blood,Urine Negative (Negative); Color,Urine Yellow; Glucose,Urine (UA) Negative (Negative); Ketones,Urine Negative (Negative); Leukocyte Esterase,Urine Trace (Negative); Mucus,Urine Occasional /hpf; Nitrite,Urine Negative (Negative); Protein,Urine Negative (Negative); RBC,Urine 4 /hpf (0-5); Specific Gravity,Urine 1.007 (1.001-1.035); Squamous Epithelial Cell,Urine 53 /hpf (0-4); Urobilinogen,Urine <2.0 mg/dL (<2.0)
[2018-12-05 19:47] LABS: ALT 13 U/L (9-52); AST 15 U/L (14-36); African American GFR (CKD) >90 (>60 ml/min/1.73 sqM); Albumin 4.6 g/dL (3.5-5.0); Alkaline Phosphatase 68 U/L (38-126); Amylase 72 U/L (30-110); Anion Gap 11 mmol/L; Blood Urea Nitrogen 9 mg/dL (7-17); Calcium 9.5 mg/dL (8.4-10.2); Carbon Dioxide 23 mmol/L (22-30); Chloride 105 mmol/L (98-107); Glucose 111 mg/dL (74-99); Lipase 135 U/L (23-300); Sodium 139 mmol/L (137-145); Total Bilirubin 0.9 mg/dL (0.2-1.3); Total Protein 7.5 g/dL (6.3-8.2)
--- NOTE | 2018-12-05 20:05 | XR ---
EXAMINATION TYPE: XR KUB DATE OF EXAM: 12/05/2018 COMPARISON: 03/01/2016 HISTORY: Pain and vomiting for one week TECHNIQUE: 2 upright views FINDINGS: Visualized lung bases and pleural spaces are negative for acute findings. The bowel gas pattern is normal, and there is no pneumatosis or pneumoperitoneum. No definite acute skeletal or soft tissue findings are evident. IMPRESSION: No acute radiographic process.
== END 2018-12-05 20:00 | disposition left against medical advice (07) ==
LOC: EC 17:15
DX: K92.0 Hematemesis (principal); R10.9 Unspecified abdominal pain; Z53.21 Procedure and treatment not carried out due to patient leaving prior to being seen by health care provider
CPT/HCPCS: 36415; 74018; 80053; 81001; 82150; 83690; 99499

== ENCOUNTER 2019-02-01 19:22 | Emergency (ER) | payer OTHER ==
[2019-02-01] MEDS ORDERED: KETOROLAC 30 MG/ML 1 ML VIAL IVP STA (20:01)
[2019-02-01] MEDS ORDERED: SODIUM CHLORIDE 0.9% 1,000 ML IV STA (20:01)
--- NOTE | 2019-02-01 20:16 | ED ---
Abdominal Pain HPI - General Chief Complaint: Abdominal Pain Stated Complaint: Abd pain Time Seen by Provider: 02/01/19 19:42 Source: patient Mode of arrival: ambulatory Limitations: no limitations - History of Present Illness Initial Comments: 28-year-old female patient presents to the emergency department today for evaluation of abdominal bloating and cramping. Patient states she's had bloating for the last week and started having cramping yesterday. Patient states she has pain at a constant 4 out of 10 on the pain scale however it does increase a 7 or 8 occasionally. Patient states it feels like contractions. Patient did have tubal ligation however is concerned one of her clamps may have came loose. She did take a home test which was negative. Patient states her bowel movements have been normal. States she is having some urinary frequency but denies any dysuria or urgency. Denies hematuria. Denies any abnormal vaginal bleeding or discharge. Denies concern for sexually transmitted infections. Denies taking any medications for pain. States she has had tubal ligation and D&C which are her only abdominal myriam geries. Patient denies any recent rash, shortness breath, chest pain, nausea, vomiting, diarrhea, constipation, back pain, numbness, tingling, dizziness, weakness, headache, visual changes, or any other complaints. - Related Data Home Medications Medication Instructions Recorded Confirmed Phenylephrine/Dm/Acetaminop/GG 30 ml PO Q4H PRN 04/26/17 06/12/17 [Vicks Dayquil Severe Cold-Flu] Previous Rx's Medication Instructions Recorded Ibuprofen 800 mg PO Q8H PRN 7 Days #21 tablet 06/09/18 Clindamycin [Cleocin] 450 mg PO Q8HR 7 Days capsule 09/12/18 Allergies Allergy/AdvReac Type Severity Reaction Status Date / Time amoxicillin [Amoxicillin] Allergy Anaphylaxis Verified 02/01/19 19:31 Review of Systems ROS Statement: Those systems with pertinent positive or pertinent negative responses have been documented in the HPI. ROS Other: All systems not noted in ROS Statement are negative. Past Medical History Past Medical History: Asthma, Pneumonia Additional Past Medical History / Comment(s): scoliosis, borderline personality disorder, vertigo History of Any Multi-Drug Resistant Organisms: None Reported Past Surgical History: Tubal Ligation Additional Past Surgical History / Comment(s): D&C Past Anesthesia/Blood Transfusion Reactions: No Reported Reaction Past Psychological History: Anxiety, Bipolar Smoking Status: Current every day smoker Past Alcohol Use History: None Reported Past Drug Use History: None Reported - Past Family History Mother Family Medical History: Musculoskeletal Disorder General Exam Limitations: no limitations General appearance: alert, in no apparent distress, other (This is a well-developed, well-nourished adult female patient in no acute distress. Vital signs upon presentation are temperature 98.2F, pulse 106, respirations 16, blood pressure 129/90, pulse ox 99% on room air.) Eye exam: Present: normal appearance, PERRL, EOMI. Absent: scleral icterus, conjunctival injection, periorbital swelling ENT exam: Present: normal exam, normal oropharynx, mucous membranes moist Respiratory exam: Present: normal lung sounds bilaterally. Absent: respiratory distress, wheezes, rales, rhonchi, stridor Cardiovascular Exam: Present: regular rate, normal rhythm, normal heart sounds. Absent: systolic murmur, diastolic murmur, rubs, gallop, clicks GI/Abdominal exam: Present: soft, tenderness (Suprapubic tenderness), normal bowel sounds. Absent: distended, guarding, rebound, rigid Neurological exam: Present: alert, oriented X3, CN II-XII intact Psychiatric exam: Present: normal affect, normal mood Skin exam: Present: warm, dry, intact, normal color. Absent: rash Course Vital Signs 02/01/19 02/01/19 02/01/19 19:28 21:14 22:04 Temperature 98.2 F 98.6 F 98.4 F Pulse Rate 106 H 83 82 Respiratory 16 18 18 Rate Blood Pressure 129/90 120/85 122/84 O2 Sat by Pulse 99 98 100 Oximetry Medical Decision Making - Medical Decision Making 36-year-old female patient presents to the emergency department today for evaluation of abdominal bloating and cramping. Physical examination did reveal some suprapubic tenderness. Patient is afebrile with normal vital signs. Labs reviewed and are unremarkable. X-ray of the abdomen was obtained and showed no acute abnormalities. Patient was concerned she is , her serum test is negative. She'll be discharged home at this time to follow-up with her primary care physician for recheck in 1-2 days. She is instructed to follow-up with Rhea child if symptoms aren't improved. Return parameters were discus sed in detail. She verbalizes understanding and agrees with this plan. - Lab Data Result diagrams: 02/01/19 20:07 02/01/19 20:07 Lab Results 02/01/19 02/01/19 02/01/19 Range/Units 20:07 20:07 20:07 WBC 6.7 (3.8-10.6) k/uL RBC 4.59 (3.80-5.40) m/uL Hgb 13.8 (11.4-16.0) gm/dL Hct 42.1 (34.0-46.0) % MCV 91.6 (80.0-100.0) fL MCH 30.1 (25.0-35.0) pg MCHC 32.8 (31.0-37.0) g/dL RDW 13.8 (11.5-15.5) % Plt Count 277 (150-450) k/uL Neutrophils % 54 % Lymphocytes % 35 % Monocytes % 6 % Eosinophils % 3 % Basophils % 1 % Neutrophils # 3.6 (1.3-7.7) k/uL Lymphocytes # 2.3 (1.0-4.8) k/uL Monocytes # 0.4 (0-1.0) k/uL Eosinophils # 0.2 (0-0.7) k/uL Basophils # 0.0 (0-0.2) k/uL Sodium 140 (137-145) mmol/L Potassium 4.2 (3.5-5.1) mmol/L Chloride 106 (98-107) mmol/L Carbon Dioxide 24 (22-30) mmol/L Anion Gap 10 mmol/L BUN 12 (7-17) mg/dL Creatinine 0.70 (0.52-1.04) mg/dL Est GFR (CKD-EPI)AfAm >90 (>60 ml/min/1.73 sqM) Est GFR (CKD-EPI)NonAf >90 (>60 ml/min/1.73 sqM) Glucose 85 (74-99) mg/dL Calcium 9.6 (8.4-10.2) mg/dL Total Bilirubin 0.5 (0.2-1.3) mg/dL AST 17 (14-36) U/L ALT 32 (9-52) U/L Alkaline Phosphatase 67 (38-126) U/L Total Protein 7.2 (6.3-8.2) g/dL Albumin 4.3 (3.5-5.0) g/dL Amylase 59 (30-110) U/L Lipase 94 (23-300) U/L HCG, Qual Not Detected Urine Color Yellow Urine Appearance Cloudy H (Clear) Urine pH 5.5 (5.0-8.0) Ur Specific Josephine 1.020 (1.001-1.035) Urine Protein Negative (Negative) Urine Glucose (UA) Negative (Negative) Urine Ketones Negative (Negative) Urine Blood Negative (Negative) Urine Nitrite Negative (Negative) Urine Bilirubin Negative (Negative) Urine Urobilinogen <2.0 (<2.0) mg/dL Ur Leukocyte Esterase Moderate H (Negative) Urine RBC 1 (0-5) /hpf Urine WBC 3 (0-5) /hpf Ur Squamous Epith Cells 22 H (0-4) /hpf Urine Mucus Rare H (None) /hpf - Radiology Data Radiology results: report reviewed, image reviewed KUB x-ray of the abdomen was obtained. Report was reviewed in its entirety. Impression by Dr. Kelley shows nonacute abdomen with no change. Disposition Clinical Impression: Abdominal pain, Bloating Disposition: HOME SELF-CARE Condition: Good Instructions (If sedation given, give patient instructions): Gas and Bloating (ED), Abdominal Pain (ED) Additional Instructions: Eat a bland diet. Increase fluids. Follow-up with your primary care physician for recheck in 1-2 days. Follow-up with gastroenterology as needed. Return to the emergency department immediately for any new, worsening, or concerning symptoms. Is patient prescribed a controlled substance at d/c from ED?: No Referrals: Darrell Pemberton MD [Primary Care Provider] - 1-2 days Rabia Ca MD [STAFF PHYSICIAN] - 1-2 days Time of Disposition: 21:45
[2019-02-01 20:33] LABS: Basophils % (A) 1 %; Eosinophils # (A) 0.2 k/uL (0-0.7); Eosinophils % (A) 3 %; HCT 42.1 % (34.0-46.0); HGB 13.8 gm/dL (11.4-16.0); Lymphocytes # (A) 2.3 k/uL (1.0-4.8); Lymphocytes % (A) 35 %; MCH 30.1 pg (25.0-35.0); MCHC 32.8 g/dL (31.0-37.0); MCV 91.6 fL (80.0-100.0); Monocytes # (A) 0.4 k/uL (0-1.0); Monocytes % (A) 6 %; Neutrophils # (A) 3.6 k/uL (1.3-7.7); Neutrophils % (A) 54 %; Platelet Count 277 k/uL (150-450); RBC 4.59 m/uL (3.80-5.40); RDW 13.8 % (11.5-15.5); WBC 6.7 k/uL (3.8-10.6)
[2019-02-01 20:48] LABS: Appearance,Urine Cloudy (Clear); Bilirubin,Urine Negative (Negative); Blood,Urine Negative (Negative); Color,Urine Yellow; Glucose,Urine (UA) Negative (Negative); HCG,Qualitative Serum Not Detected; Ketones,Urine Negative (Negative); Leukocyte Esterase,Urine Moderate (Negative); Mucus,Urine Rare /hpf; Nitrite,Urine Negative (Negative); PH, Urine 5.5 (5.0-8.0); Protein,Urine Negative (Negative); RBC,Urine 1 /hpf (0-5); Squamous Epithelial Cell,Urine 22 /hpf (0-4); Urobilinogen,Urine <2.0 mg/dL (<2.0); WBC,Urine 3 /hpf (0-5)
[2019-02-01 20:49] LABS: ALT 32 U/L (9-52); AST 17 U/L (14-36); African American GFR (CKD) >90 (>60 ml/min/1.73 sqM); Albumin 4.3 g/dL (3.5-5.0); Alkaline Phosphatase 67 U/L (38-126); Amylase 59 U/L (30-110); Anion Gap 10 mmol/L; Blood Urea Nitrogen 12 mg/dL (7-17); Calcium 9.6 mg/dL (8.4-10.2); Carbon Dioxide 24 mmol/L (22-30); Chloride 106 mmol/L (98-107); Glucose 85 mg/dL (74-99); Potassium 4.2 mmol/L (3.5-5.1); Sodium 140 mmol/L (137-145); Total Bilirubin 0.5 mg/dL (0.2-1.3); Total Protein 7.2 g/dL (6.3-8.2)
--- NOTE | 2019-02-01 21:04 | XR ---
EXAMINATION TYPE: XR KUB DATE OF EXAM: 02/01/2019 COMPARISON: 12/05/2018 HISTORY: Abdominal pain TECHNIQUE: 2 views FINDINGS: 2 upright views were obtained and show no sign of intestinal obstruction or pneumoperitoneu m. Fecal pattern is normal. There is thoracolumbar dextroscoliosis. Lung bases are clear. There are n o pathologic calcifications. There are clips from tubal ligation. There is no evidence of a mass. IMPRESSION: Nonacute abdomen. No change.
[2019-02-01 21:15] VITALS: RESP 18
[2019-02-01 22:06] VITALS: BP 122/84; PULSE 82; TEMP 98.4
== END 2019-02-01 22:05 | disposition home or self-care (01) ==
LOC: EC 19:22
DX: R10.9 Unspecified abdominal pain (principal); R14.0 Abdominal distension (gaseous); Z32.02 Encounter for pregnancy test, result negative; R35.0 Frequency of micturition; F17.200 Nicotine dependence, unspecified, uncomplicated; Z88.0 Allergy status to penicillin; Z98.51 Tubal ligation status
CPT/HCPCS: 36415; 80053; 82150; 83690; 85025; 81001; 84703; 74018; 99284; 96374; 96361; J1885

== ENCOUNTER → 2019-11-24 | Outpatient (CLI) | payer OTHER ==
--- NOTE | 2019-11-25 09:42 | XR ---
Right hip HISTORY: Chronic right hip pain 2 views of the right hip Bone mineralization, joint spaces and alignment are maintained. Fallopian tubal ligation clip is pres ent in the right hemipelvis. No fracture or dislocation. IMPRESSION: Normal right hip. Hip MRI may be of benefit.
== END | disposition home or self-care (01) ==
LOC: RADXRMAIN 15:43
PROVIDERS: ATTEND Internal Medicine
DX: M25.551 Pain in right hip (principal)
CPT/HCPCS: 73502

== ENCOUNTER 2022-04-24 13:40 | Emergency (ER) | payer OTHER ==
[2022-04-24 13:50] VITALS: BP 130/90; PULSE 84; RESP 20; TEMP 98
--- NOTE | 2022-04-24 14:56 | ED ---
ENT HPI - General Chief complaint: Dental/Oral Stated complaint: Dental Issues Time Seen by Provider: 04/24/22 14:37 Source: patient, RN notes reviewed Mode of arrival: ambulatory Limitations: no limitations - History of Present Illness Initial comments: Patient is a 31-year-old male presenting to the emergency room with complaints of pain and swelling to the front upper, with worsening in the left cheek region which began approximately 24 hours ago. She reports an [id number] to help with symptoms but reports that the swelling is wors ening. She has multiple dental caries and needs all of her teeth extracted however she is not currently following with a dentist. She has had recurrent dental infections and has been treated with clindamycin in this past with response though the infections recur due to lack of dental follow-up. She she has pain with chewing but denies any difficulty swallowing. She denies any chest pain, shortness breath, abdominal pain, nausea, vomiting, fevers or chills. She is past medical history significant for asthma borderline personality disorder and vertigo. - Related Data Home Medications Medication Instructions Recorded Confirmed Phenylephrine/Dm/Acetaminop/GG 30 ml PO Q4H PRN 04/26/17 06/12/17 [Vicks Dayquil Severe Cold-Flu] Previous Rx's Medication Instructions Recorded Ibuprofen 800 mg PO Q8H PRN 7 Days #21 tablet 06/09/18 Clindamycin [Cleocin] 450 mg PO Q8HR 7 Days capsule 09/12/18 clindamycin HCL [Cleocin] 300 mg PO Q6HR 10 Days #40 cap 04/24/22 Allergies Allergy/AdvReac Type Severity Reaction Status Date / Time amoxicillin [Amoxicillin] Allergy Anaphylaxis Verified 04/24/22 13:49 Review of Systems ROS Statement: Those systems with pertinent positive or pertinent negative responses have been documented in the HPI. ROS Other: All systems not noted in ROS Statement are negative. Past Medical History Past Medical History: Asthma, Pneumonia Additional Past Medical History / Comment(s): scoliosis, borderline personality disorder, vertigo History of Any Multi-Drug Resistant Organisms: None Reported Past Surgical History: Tubal Ligation Additional Past Surgical History / Comment(s): D&C Past Anesthesia/Blood Transfusion Reactions: No Reported Reaction Past Psychological History: Anxiety, Bipolar Smoking Status: Current every day smoker Past Alcohol Use History: None Reported Past Drug Use History: None Reported - Past Family History Mother Family Medical History: Musculoskeletal Disorder General Exam Limitations: no limitations General appearance: alert, in no apparent distress Head exam: Present: atraumatic, normocephalic, normal inspection Eye exam: Present: normal appearance, PERRL, EOMI. Absent: scleral icterus, conjunctival injection, periorbital swelling Expanded Teeth exam: Present: dental caries (multiple), fractured tooth # (multiple), dental tenderness # (multiple), gingival enlargement (upper front to left posterior) Neck exam: Present: tenderness, full ROM, lymphadenopathy (shotty) Respiratory exam: Absent: respiratory distress, accessory muscle use Cardiovascular Exam: Present: regular rate GI/Abdominal exam: Absent: distended Extremities exam: Absent: pedal edema, joint swelling Back exam: Present: normal inspection Neurological exam: Present: alert, oriented X3, CN II-XII intact Psychiatric exam: Present: normal affect, normal mood Skin exam: Present: other (Gingival erythremia and edema as above). Absent: rash Course Vital Signs 04/24/22 13:48 Temperature 98 F Pulse Rate 84 Respiratory 20 Rate Blood Pressure 130/90 O2 Sat by Pulse 99 Oximetry Medical Decision Making - Medical Decision Making 31-year-old female presenting to the emergency room with pain and swelling to her upper and left side of her come into her cheek region increasing in size and intensity over the last 24 hours. Previous treatment for dental abscess. No overt abscess visualized or palpated for drainage. Responded well to clindamycin in the past. No indication for diagnostic imaging or laboratory studies. Will give clindamycin course of antibiotic therapy again. Encouraged continuation of [id number] ibuprofen for pain and swelling. Will discharge home in stable condition with antibiotic therapy and advise follow-up with primary care provider along with dentist. Case discussed with Dr. Reina. Disposition Clinical Impression: Gingivitis, Abscess, dental Disposition: HOME SELF-CARE Condition: Stable Instructions (If sedation given, give patient instructions): Dental Abscess (ED) Additional Instructions: Please complete course of antibiotic as prescribed. Continue to utilize ibuprofen [id number] as needed for pain and swelling. Please follow-up with your primary care provider and with dentist. Please return to the Emergency Department if symptoms worsen or any other concerns. Prescriptions: clindamycin HCL [Cleocin] 300 mg PO Q6HR 10 Days #40 cap Is patient prescribed a controlled substance at d/c from ED?: No Referrals: None,Stated [Primary Care Provider] - 1-2 days Time of Disposition: 14:58
== END 2022-04-24 15:10 | disposition home or self-care (01) ==
LOC: EC 13:40
DX: K05.10 Chronic gingivitis, plaque induced (principal); K04.7 Periapical abscess without sinus; J45.909 Unspecified asthma, uncomplicated; F41.9 Anxiety disorder, unspecified; F31.9 Bipolar disorder, unspecified; F17.200 Nicotine dependence, unspecified, uncomplicated; Z79.899 Other long term (current) drug therapy; Z88.0 Allergy status to penicillin
CPT/HCPCS: 99282

== ENCOUNTER 2024-08-25 17:17 | Emergency (ER) | payer OTHER ==
--- NOTE | 2024-08-25 17:55 | ED ---
General Adult HPI - General Chief complaint: Chest Pain Stated complaint: chest pain Time Seen by Provider: 08/25/24 17:24 Source: patient Mode of arrival: ambulatory Limitations: no limitations - History of Present Illness Initial comments: Dictation was produced using [employer] dictation software. please excuse any grammatical, word or spelling errors. Chief Complaint: 34-year-old female with chest pain History of Present Illness: Patient 34-year-old female presents to the emergency department with several months of chest pain. States she has chest pain daily. She states that it is like a sharp pressure in her substernal chest that intermittently radiates to both extremities. States that she has this pain daily. Patient denies any history of hypertension diabetes high cholesterol. She does use tobacco. States that today her pain was really bad. She was trying to hold off on coming to the emergency department due to lack of insurance. States that exertion makes it worse. She does report history of scoliosis. Patient denies history of IV drug use. The ROS documented in this emergency department record has been reviewed and con firmed by me. Those systems with pertinent positive or negative responses have been documented in the HPI. All other systems are other negative and/or noncontributory. - Related Data Home Medications Medication Instructions Recorded Confirmed No Known Home Medications 08/25/24 08/25/24 Allergies Allergy/AdvReac Type Severity Reaction Status Date / Time amoxicillin [Amoxicillin] Allergy Anaphylaxis Verified 08/25/24 18:25 Review of Systems ROS Statement: Those systems with pertinent positive or pertinent negative responses have been documented in the HPI. ROS Other: All systems not noted in ROS Statement are negative. Past Medical History Past Medical History: Asthma, Pneumonia Additional Past Medical History / Comment(s): scoliosis, borderline personality disorder, vertigo History of Any Multi-Drug Resistant Organisms: None Reported Past Surgical History: Tubal Ligation Additional Past Surgical History / Comment(s): D&C Past Anesthesia/Blood Transfusion Reactions: No Reported Reaction Past Psychological History: Anxiety, Bipolar Smoking Status: Current every day smoker Past Alcohol Use History: None Reported Past Drug Use History: Marijuana - Past Family History Mother Family Medical History: Musculoskeletal Disorder General Exam - General Exam Comments Initial Comments: PHYSICAL EXAM: General Impression: Alert and oriented x3, not in acute distress, poor dentition HEENT: Normocephalic atraumatic, extra-ocular movements intact, pupils equal and reactive to light bilaterally, mucous membranes moist. Cardiovascular: Heart regular rate and rhythm Chest: Able to complete full sentences, no retractions, no tachypnea Abdomen: abdomen soft, non-tender, non-distended, no organomegaly Musculoskeletal: Pulses present and equal in all extremities, no peripheral edema Motor: no focal deficits noted Neurological: CN II-XII grossly intact, no focal motor or sensory deficits noted Skin: Intact with no visualized rashes Psych: Normal affect and mood Limitations: no limitations Course Vital Signs 08/25/24 08/25/24 08/25/24 17:19 17:41 18:35 Temperature 98.0 F 98.2 F Pulse Rate 124 H 81 Pulse Rate [ 91 Bilateral Carton Stapler ] Respiratory 16 18 Rate Blood Pressure 139/87 100/66 O2 Sat by Pulse 100 98 Oximetry EKG Findings - EKG Comments: EKG Findings:: My EKG interpretation: Ventricular rate 92, sinus rhythm,. 136, QRS 72, QTc 372. No OR prolongation, no QTC prolongation, no ST or T-wave changes noted. Overall, this EKG is unremarkable Medical Decision Making - Medical Decision Making Was pt. sent in by a medical professional or institution (, PA, COMMUNITY RELATIONS REP, urgent care, hospital, or half-way...) When possible be specific @ -No Did you speak to anyone other than the patient for history (EMS, parent, family, police, friend...)? What history was obtained from this source @ -No Did you review nursing and triage notes (agree or disagree)? Why? @ -I reviewed and agree with nursing and triage notes Were old charts reviewed (outside hosp., previous admission, EMS record, old EKG, old radiological studies, urgent care reports/EKG's, half-way records)? Report findings @ -No old charts were reviewed Differential Diagnosis (chest pain, altered mental status, abdominal pain women, abdominal pain men, vaginal bleeding, musculoskeletal, weakness, fever, dyspnea, syncope, headache, dizziness, GI bleed, back pain, seizure, CVA, palpatations, mental health)? @ -Differential Chest Pain: Stable Angina, Unstable Angina, STEMI, NSTEMI Aortic Dissection, Pneumothorax, Musculoskeletal, Esophageal Spasm GERD, Cholecystitis, Pancreatitis, Zoster, this is not meant to be an all-inclusive list. EKG interpreted by me (3pts min.). @ -See above X-rays interpreted by me (1pt min.). @ -Chest x-ray is nonacute CT interpreted by me (1pt min.). @ -None done U/S interpreted by me (1pt. min.). @ -None done What testing was considered but not performed or refused? (CT, X-rays, U/S, labs)? Why? @ -None What meds were considered but not given or refused? Why? @ -None Was smoking cessation discussed for >3mins.? @ -No Were there social determinants of health that impacted care today? How? (Homelessness, low income, unemployed, alcoholism, drug addiction, transport ation, low edu. Level, literacy, decrease access to med. care, residential, rehab)? @ -No Was there de-escalation of care discussed even if they declined (Discuss DNR or withdrawal of care, Hospice)? DNR status @ -No What co-morbidities impacted this encounter? (DM, HTN, Smoking, COPD, CAD, Cancer, CVA, ARF, Chemo, Hep., AIDS, mental health diagnosis, sleep apnea, morbid obesity)? @ -None Was patient admitted / discharged? Hospital course, mention meds given and route, prescriptions, significant lab abnormalities, going to OR and other pertinent info. @ -34-year-old female presents to the emergency department atypical chest pain typical features. She has no significant risk factors. Vital signs upon arrival shows heart of 124. Repeat vital signs are within acceptable limits. EKG is unremarkable. Patient well-appearing. She does not have any significant risk factors. Laboratory evaluation is unremarkable. Troponin is negative. Patient discharged advised follow-up with family medicine referral. Did you discuss the management of the patient with other professionals (professionals i.e. , PA, COMMUNITY RELATIONS REP, lab, RT, psych nurse, foster care social worker, elevator erector, teacher, escrow officer, business case analyst)? Give summary @ -No Was critical care preformed (if so, how long)? @ -No Undiagnosed new problem with uncertain prognosis? @ -No Drug Therapy requiring intensive monitoring for toxicity (Heparin, Nitro, Insulin, Cardizem)? @ -No Were any procedures done? @ -No Diagnosis/symptom? Acute, or Chronic, or Acute on Chronic? Uncomplicated (without systemic symptoms) or Complicated (systemic symptoms)? @ -Chest pain Side effects of treatment? @ -No Exacerbation, Progression, or Severe Exacerbation? @ -No Poses a threat to life or bodily function? How? (Chest pain, [place], [place], pneumonia, PE, COPD, DKA, ARF, appy, cholecystitis, CVA, Diverticulitis, Homicidal, Suicidal, threat to staff... and all critical care pts) @ -No - Lab Data Result diagrams: 08/25/24 17:45 08/25/24 17:45 Lab Results 08/25/24 08/25/24 08/25/24 Range/Units 17:45 17:45 17:45 WBC 8.4 (3.8-10.6) k/uL RBC 4.76 (3.80-5.40) m/uL Hgb 15.1 (11.4-16.0) gm/dL Hct 46.2 H (34.0-46.0) % MCV 97.2 (80.0-100.0) fL MCH 31.8 (25.0-35.0) pg MCHC 32.7 (31.0-37.0) g/dL RDW 14.9 (11.5-15.5) % Plt Count 336 (150-450) k/uL MPV 8.2 Neutrophils % 67 % Lymphocytes % 25 % Monocytes % 5 % Eosinophils % 2 % Basophils % 0 % Neutrophils # 5.6 (1.3-7.7) k/uL Lymphocytes # 2.1 (1.0-4.8) k/uL Monocytes # 0.4 (0-1.0) k/uL Eosinophils # 0.1 (0-0.7) k/uL Basophils # 0.0 (0-0.2) k/uL PT (10.0-12.5) sec INR (<1.2) APTT (22.0-30.0) sec D-Dimer (<0.60) mg/L FEU Sodium 137 (137-145) mmol/L Potassium 4.6 (3.5-5.1) mmol/L Chloride 104 (98-107) mmol/L Carbon Dioxide 23 (22-30) mmol/L Anion Gap 10 mmol/L BUN 9 (7-17) mg/dL Creatinine 0.66 (0.52-1.04) mg/dL Est GFR (CKD-EPI)AfAm >90 (>60 ml/min/1.73 sqM) Est GFR (CKD-EPI)NonAf >90 (>60 ml/min/1.73 sqM) Glucose 78 (74-99) mg/dL Calcium 9.9 (8.4-10.2) mg/dL Magnesium 1.9 (1.6-2.3) mg/dL Total Bilirubin 1.0 (0.2-1.3) mg/dL AST 24 (14-36) U/L ALT 22 (4-34) U/L Alkaline Phosphatase 83 (38-126) U/L Troponin I <0.012 (0.000-0.034) ng/mL Total Protein 7.7 (6.3-8.2) g/dL Albumin 4.6 (3.5-5.0) g/dL 08/25/24 Range/Units 19:56 WBC (3.8-10.6) k/uL RBC (3.80-5.40) m/uL Hgb (11.4-16.0) gm/dL Hct (34.0-46.0) % MCV (80.0-100.0) fL MCH (25.0-35.0) pg MCHC (31.0-37.0) g/dL RDW (11.5-15.5) % Plt Count (150-450) k/uL MPV Neutrophils % % Lymphocytes % % Monocytes % % Eosinophils % % Basophils % % Neutrophils # (1.3-7.7) k/uL Lymphocytes # (1.0-4.8) k/uL Monocytes # (0-1.0) k/uL Eosinophils # (0-0.7) k/uL Basophils # (0-0.2) k/uL PT 10.7 (10.0-12.5) sec INR 1.0 (<1.2) APTT 21.3 L (22.0-30.0) sec D-Dimer 0.30 (<0.60) mg/L FEU Sodium (137-145) mmol/L Potassium (3.5-5.1) mmol/L Chloride (98-107) mmol/L Carbon Dioxide (22-30) mmol/L Anion Gap mmol/L BUN (7-17) mg/dL Creatinine (0.52-1.04) mg/dL Est GFR (CKD-EPI)AfAm (>60 ml/min/1.73 sqM) Est GFR (CKD-EPI)NonAf (>60 ml/min/1.73 sqM) Glucose (74-99) mg/dL Calcium (8.4-10.2) mg/dL Magnesium (1.6-2.3) mg/dL Total Bilirubin (0.2-1.3) mg/dL AST (14-36) U/L ALT (4-34) U/L Alkaline Phosphatase (38-126) U/L Troponin I (0.000-0.034) ng/mL Total Protein (6.3-8.2) g/dL Albumin (3.5-5.0) g/dL Disposition Clinical Impression: Chest pain Disposition: HOME SELF-CARE Condition: Fair Instructions (If sedation given, give patient instructions): Chest Pain (ED) Is patient prescribed a controlled substance at d/c from ED?: No Referrals: Adilson Stevenson DO [STAFF PHYSICIAN] - 1-2 days Time of Disposition: 20:55
--- NOTE | 2024-08-25 18:04 | XR ---
EXAMINATION TYPE: XR chest 2V DATE OF EXAM: 08/25/2024 6:00 PM COMPARISON: Prior chest radiographs, most recently dated 06/09/2018. CLINICAL INDICATION: Female, 34 years old with history of Chest Pain; [facility] TECHNIQUE: XR chest 2V Frontal and lateral views of the chest. FINDINGS: Lungs/Pleura: There is no evidence of pleural effusion, focal consolidation, or pneumothorax. Pulmonary vascularity: Unremarkable. Heart/mediastinum: Cardiomediastinal silhouette is unremarkable. Musculoskeletal: No acute osseous pathology. Dextroconvex scoliotic curvature of the thoracic spine. Other findings: None IMPRESSION: No acute cardiopulmonary disease/process. [facility], , 08/25/2024 6:02 PM
[2024-08-25 18:37] VITALS: TEMP 98.2
[2024-08-25 19:27] LABS: ALT 22 U/L (4-34); African American GFR (CKD) >90 (>60 ml/min/1.73 sqM); Albumin 4.6 g/dL (3.5-5.0); Anion Gap 10 mmol/L; Blood Urea Nitrogen 9 mg/dL (7-17); Calcium 9.9 mg/dL (8.4-10.2); Carbon Dioxide 23 mmol/L (22-30); Chloride 104 mmol/L (98-107); Glucose 78 mg/dL (74-99); Non-African American GFR(CKD) >90 (>60 ml/min/1.73 sqM); Sodium 137 mmol/L (137-145); Total Protein 7.7 g/dL (6.3-8.2)
[2024-08-25 19:28] LABS: AST 24 U/L (14-36); Potassium 4.6 mmol/L (3.5-5.1)
[2024-08-25 19:29] LABS: Alkaline Phosphatase 83 U/L (38-126); Magnesium 1.9 mg/dL (1.6-2.3)
[2024-08-25 19:36] LABS: Basophils % (A) 0 %; Eosinophils # (A) 0.1 k/uL (0-0.7); Eosinophils % (A) 2 %; HCT 46.2 % (34.0-46.0); HGB 15.1 gm/dL (11.4-16.0); Lymphocytes # (A) 2.1 k/uL (1.0-4.8); Lymphocytes % (A) 25 %; MCH 31.8 pg (25.0-35.0); MCHC 32.7 g/dL (31.0-37.0); MCV 97.2 fL (80.0-100.0); Mean Platelet Volume 8.2; Monocytes # (A) 0.4 k/uL (0-1.0); Monocytes % (A) 5 %; Neutrophils # (A) 5.6 k/uL (1.3-7.7); Neutrophils % (A) 67 %; Platelet Count 336 k/uL (150-450); RBC 4.76 m/uL (3.80-5.40); RDW 14.9 % (11.5-15.5); WBC 8.4 k/uL (3.8-10.6)
[2024-08-25 20:40] LABS: Partial Thromboplastin Time 21.3 sec (22.0-30.0); Prothrombin Time 10.7 sec (10.0-12.5)
[2024-08-25] MEDS: traMADol 50 MG STARTER PACK 3 TAB BTL PO STA (21:20)
[2024-08-25 21:24] VITALS: BP 118/69; PULSE 80; RESP 17
== END 2024-08-25 21:28 | disposition home or self-care (01) ==
LOC: EC 17:17
DX: R07.9 Chest pain, unspecified (principal); M41.9 Scoliosis, unspecified; F17.200 Nicotine dependence, unspecified, uncomplicated; Z88.0 Allergy status to penicillin
CPT/HCPCS: 36415; 71046; 80053; 83735; 84484; 85025; 85379; 85610; 85730; 93005; 99285